=== PATIENT | male | born 1925 | race Caucasian/White ===

== ENCOUNTER 2016-09-06 10:31 | Emergency (ER) | payer OTHER ==
[~2016-09-06] VITALS: Ht 162.6 cm; Wt 97.0 kg
[~2016-09-06 10:31] MED LIST: ALLOPURINOL300 MG PO; APRESOLINE25 MG PO; ASPIRIN81 M2 PO; Apresoline PO; CARVEDILOL12.5 MG PO; Coreg PO; Heparin Sodium SC; IRON325 MG PO; LASIX40 MG PO; NIGHTTIME SLEEP50 MG PO; Nitrostat,NitroQuick SL; Nizoral 2% Cream TP; RANITIDINE HCL150 M1 PO; SIMVASTATIN40 MG PO; Zocor PO; Zofran PO
[2016-09-06 12:19] LABS: EOSINOPHIL (%) 2.5 % (0-5); EOSINOPHIL COUNT 0.2 K/uL (0-0.3); HEMATOCRIT 30.8 % (38.0-50.0); IMMATURE GRANULOCYTE (%) 0.3 % (0.0-0.7); IMMATURE GRANULOCYTE COUNT 0.2 K/uL; LYMPHOCYTE COUNT 1.3 K/uL (1.0-2.8); MCH 30.2 PG (29.0-34.0); MCHC 33.1 G/DL (30.0-36.0); MCV 91.1 FL (86-99); MONOCYTE (%) 9.2 % (3-12); MONOCYTE COUNT 0.7 K/uL (0-0.8); NEUTROPHIL (%) 70.9 % (45-76); NEUTROPHIL COUNT 5.7 K/uL (1.8-6.4); PLATELET COUNT 237 K/uL (156-360); RBC DIS.WIDTH-CV 13.2 % (11.8-14.6); RBC DIS.WIDTH-SD 42.3 % (39-53); RED BLOOD COUNT 3.38 M/uL (4.00-5.50)
[2016-09-06 12:29] LABS: CHLORIDE 110 mEq/L (99-109); POTASSIUM 5.4 mEq/L (3.7-5.4); SODIUM 138 mEq/L (136-147)
[2016-09-06 12:31] LABS: GLUCOSE 93 mg/dL (70-99)
[2016-09-06 12:32] LABS: ANION GAP 11 MEQ/L (2-14)
[2016-09-06 12:33] LABS: TOTAL BILIRUBIN 0.5 mg/dL (0.0-1.0)
[2016-09-06 12:34] LABS: ALKALINE PHOSPHATASE 90 IU/L (3-129)
[2016-09-06 12:35] LABS: GFR ESTIMATE (CALCULATED) 23 mL/min/
[2016-09-06 12:36] LABS: UREA NITROGEN (BUN) 71 mg/dL (9-23)
[2016-09-06 12:41] LABS: TROP-I INTERPRETATION NEGATIVE; TROPONIN-I 0.05 ng/mL (0.0-0.30)
[2016-09-06 15:46] LABS: ADD MIUA? NO; BILIRUBIN NEGATIVE; BLOOD NEGATIVE; COLOR STRAW ((YELLOW)); GLUCOSE (STRIP) NEGATIVE; KETONES NEGATIVE; LEUKOCYTES NEGATIVE; NITRITE NEGATIVE; PROTEIN (STRIP) 30; SPECIFIC GRAVITY 1.009 (1.000-1.030); UROBILINOGEN 0.2 MG/DL (0.2-1.0)
[2016-09-06 21:19] VITALS: BP 151/74
== END 2016-09-06 21:20 | disposition short-term general hospital (02) ==
LOC: EME → EDBD 10:31 → EME 21:20
PROVIDERS: Emergency Medicine
DX: R60.0 Localized edema (principal); I11.0 Hypertensive heart disease with heart failure; I50.9 Heart failure, unspecified; L03.115 Cellulitis of right lower limb; L03.116 Cellulitis of left lower limb; F03.90 Unspecified dementia, unspecified severity, without behavioral disturbance, psychotic disturbance, mood disturbance, and anxiety; I12.9 Hypertensive chronic kidney disease with stage 1 through stage 4 chronic kidney disease, or unspecified chronic kidney disease; N18.9 Chronic kidney disease, unspecified; Z93.3 Colostomy status; I25.10 Atherosclerotic heart disease of native coronary artery without angina pectoris; Z85.038 Personal history of other malignant neoplasm of large intestine; Z86.14 Personal history of Methicillin resistant Staphylococcus aureus infection; Z87.891 Personal history of nicotine dependence
CPT/HCPCS: 71010; 80053; 81003; 83880; 84484; 85025; 87040; 87801; 99281; 99285; J0690; J1940